=== PATIENT | female | born 1995 | race Caucasian/White ===

== ENCOUNTER 2020-07-02 12:14 | Outpatient (CLI) | payer BC ==
[2020-07-02] MEDS ORDERED: Magnevist 469MG/ML 20 ML VIAL ONE (14:48)
--- NOTE | 2020-07-02 16:04 | MRI ---
BRAIN MRI WITH AND WITHOUT CONTRAST: 07/02/20 COMPARISON: None. HISTORY: Right sided pulsatile tinnitus. TECHNIQUE: Multiplanar and multisequence MR imaging of the brain is obtained with and without contrast using an internal auditory canal protocol. FINDINGS: The diffusion weighted imaging demonstrates no evidence for acute infarction. Regional bone marrow signal intensity appears within normal limits. There is polypoid mucosal thickening involving the alveolar recess of the maxillary sinus on the righ t. There is no midline shift or mass effect. There is no ventricular enlargement. There are a few opacified mastoid air cells inferiorly/posteriorly on the right. Arterial flow voids at the axial level of the skull base appear unremarkable on the T2 weighted imaging. Thin section T2 weighted imaging through the skull base demonstrates no mass at the level of the cere bellopontine angle, the IAC, cochlea, the vestibule, or the semicircular canal on either side. There is a loop of the left anterior inferior cerebellar artery which approaches the region of the porus ac usticus on the right. Postcontrast imaging demonstrates no evidence for a high riding jugular bulb on either side. The postcontrast imaging demonstrates no abnormal enhancement or evidence for mass lesion in the nandini on of the cerebellopontine angle, IAC, cochlea, vestibule, or semicircular canals on either side. The whole brain postcontrast imaging demonstrates no abnormal enhancement within the brain parenchyma. IMPRESSION: No acute findings. Incidental findings as detailed above. POS: [facility]
--- NOTE | 2020-07-02 16:07 | MRI ---
MR ANGIOGRAM OF THE BRAIN 07/02/20 HISTORY: Right sided pulsatile tinnitus. TECHNIQUE: Routine [id number] MR angiography of the brain obtained. FINDINGS: The distal vertebral arteries demonstrate patency with antegrade blood flow. There is no saccular ane urysm, high grade stenosis, or vascular occlusion seen involving the posterior circulation. The imaged extracranial internal carotid artery appears unremarkable. The M1 segment and the MCA bifu rcation appears unremarkable bilaterally. The A1 segment, the distal GUY branches, and the distal MCA branches appear unremarkable. No saccular aneurysm, high grade stenosis, or vascular occlusion is ev ident involving the anterior circulation. IMPRESSION: Unremarkable MR angiogram of the head. POS: [facility]
== END 2020-07-02 12:15 | disposition home or self-care (01) ==
LOC: BICMRI 12:14
PROVIDERS: ATTEND Otolaryngology Otolaryngic Allergy
DX: H93.A1 Pulsatile tinnitus, right ear (principal)
CPT/HCPCS: 70544; 70553; A9579

== ENCOUNTER 2020-11-20 15:29 | Outpatient (CLI) | payer BC | END 2020-11-20 15:30 | disposition home or self-care (01) | LOC: BICULT 15:29 | PROVIDERS: ATTEND Otolaryngology Otolaryngic Allergy | DX: E04.1 Nontoxic single thyroid nodule (principal) | CPT/HCPCS: 76536 ==